=== PATIENT | female | born 1945 | race Caucasian/White ===

== ENCOUNTER → 2020-09-28 18:54 | Outpatient (CLI) | payer MEDICARE ==
[2015-05-23 09:49] VITALS: BMI 35.7
[~2020-09-28 18:54] MED LIST: ACETAMINOPHEN500 M1 PO; ACIDOPHILUS LAC1 CAP PO; ADVAIR 100/501 DISK INH; ALDACTONE25 MG PO; BAYER CHEWABLE81 MG PO; BENADRYL25 MG PO; BENZONATATE200 MG PO; CALCIUM 600 +1 EAC3 PO; COENZYME Q10100 MG PO; COZAAR50 MG PO; FISH OIL 1,0001 CA1 PO; FUROSEMIDE10 MG/M1 PO; HYDROCODONE-APA1 TAB PO; K-DUR20 MEQ PO; LEVAQUIN750 MG PO; LIPITOR40 MG PO; MEDROL DOSE PACK4 MG PO; METOPROLOL TART50 MG PO; MIRALAX17 GM PO; MUCUS RELIEF400 MG PO; NIASPAN500 MG PO; PROAIR HFA8.5 GM INH; SENNA PLUS TA1 UDTAB PO; SYNTHROID75 MCG PO; XOPENEX 1.1.25 MG/3 UPD
[2020-09-28 19:41] LABS: BASOPHILS 0.6 % (0-2); EOSINOPHILS 1.9 % (0-7); HEMATOCRIT 27.9 % (36.0-48.0); HEMOGLOBIN 9.1 g/dL (12-16); MCH 28.5 pg (26.0-34.0); MCHC 32.8 g/dL (31.0-37.0); MEAN PLATELET VOLUME 8.4 fL (7.4-10.4); MONOCYTES 7.7 % (2-11); NEUTROPHILS 79.8 % (40-80); PLATELET COUNT 233 10x3/uL (130-400); RBC 3.21 10x6/uL (4.00-5.40); RDW 15.7 % (11.5-14.5); WBC 8.9 10x3/uL (4.8-10.8)
[2020-09-28 20:29] LABS: ALBUMIN 2.9 g/dL (3.4-5.0); ANION GAP 9.9 mmol/L (8-16); BILIRUBIN - TOTAL 0.44 mg/dL (0.2-1.3); CALCIUM 8.9 mg/dL (8.5-10.1); CARBON DIOXIDE 32.2 mmol/L (21.0-32.0); CHOL - HDL RATIO 2.5 ratio (2.3-4.1); POTASSIUM - SERUM 4.1 mmol/L (3.5-5.1); PROTEIN - SERUM 6.4 g/dL (6.4-8.2)
== END | disposition home or self-care (01) ==
LOC: D.LABREF 18:54
PROVIDERS: ATTEND Family Medicine
DX: E11.69 Type 2 diabetes mellitus with other specified complication (principal)